=== PATIENT | male | born 1995 | race African-American/Black ===

== ENCOUNTER 2022-05-22 02:09 | Emergency (ER) | payer MEDICAID ==
[~2022-05-22] VITALS: Ht 185.4 cm; Wt 100.0 kg
[~2022-05-22 02:09] MED LIST: NO HOME MEDS
[2022-05-22 02:23] VITALS: BP 105/67
== END 2022-05-22 09:17 | disposition left against medical advice (07) ==
LOC: ER 02:10
DX: M25.519 Pain in unspecified shoulder (principal); Z53.21 Procedure and treatment not carried out due to patient leaving prior to being seen by health care provider; V89.2XXA Person injured in unspecified motor-vehicle accident, traffic, initial encounter; Y93.89 Activity, other specified; Y92.89 Other specified places as the place of occurrence of the external cause; Y99.8 Other external cause status

== ENCOUNTER 2022-06-01 21:22 | Emergency (ER) | payer MEDICAID ==
[~2022-06-01] VITALS: Ht 185.4 cm; Wt 100.0 kg
[2022-06-01 21:55] VITALS: BP 97/70
== END 2022-06-02 02:23 | disposition left against medical advice (07) ==
LOC: ER 21:22
DX: M25.579 Pain in unspecified ankle and joints of unspecified foot (principal); Z53.21 Procedure and treatment not carried out due to patient leaving prior to being seen by health care provider

== ENCOUNTER 2022-06-02 19:11 | Emergency (ER) | payer MEDICAID ==
[~2022-06-02] VITALS: Ht 185.4 cm; Wt 87.0 kg
[2022-06-02 19:32] VITALS: BP 111/55
[2022-06-02] MEDS ORDERED: ibuprofen 200mg tablet PO ONE (21:05)
== END 2022-06-02 21:31 | disposition home or self-care (01) ==
LOC: ER 19:12
DX: M25.471 Effusion, right ankle (principal); M25.571 Pain in right ankle and joints of right foot; Z88.0 Allergy status to penicillin; Z79.899 Other long term (current) drug therapy; Z56.0 Unemployment, unspecified; X58.XXXA Exposure to other specified factors, initial encounter; Y93.89 Activity, other specified; Y92.89 Other specified places as the place of occurrence of the external cause; Y99.8 Other external cause status
CPT/HCPCS: 29515; 73610; 99284